=== PATIENT | male | born 1955 | race Caucasian/White ===

== ENCOUNTER 2020-02-12 02:45 | Inpatient (IN) | payer OTHER ==
[~2020-02-12] VITALS: Ht 193 cm; Wt 122.5 kg
--- NOTE | 2020-02-12 02:59 | NUR ---
ANGELIQUE FROM FOR C/O R SHOULDER AND KNEE PAIN S/P SLIP AND FALL. + HEAD INJURY AND NOSE BLEED. - KO, UNABLE TO RAISE HIS R ARM BUT ABLE TO BEND THE R KNEE. PT WAS PLACED ON A MONITOR .VSS. WILL CONT TO MONITOR.
[2020-02-12] MEDS ORDERED: HYDROCODONE/APAP 5/325MG 1 EACH TABLET PO ONE (03:00)
--- NOTE | 2020-02-12 03:03 | NUR ---
PT REFUSED PAIN MEDICATION AT THIS TIME. HE WILL LET THE NURSE KNOW WHEN HE NEEDS THAT. WILL CONT TO MONITOR AND FOLLOW UP.
--- NOTE | 2020-02-12 03:06 | NUR ---
BROUGHT TO CT
[2020-02-12] MEDS ORDERED: HYDROCODONE/APAP 5/325MG 1 EACH TABLET ONE (04:03)
--- NOTE | 2020-02-12 05:48 | NUR ---
DR. HERNANDEZ SPEAKING WITH HOSPITALIST
--- NOTE | 2020-02-12 05:50 | NUR ---
EMT AT BEDSIDE FOR EKG
[2020-02-12] MEDS ORDERED: MAGNESIUM HYDROXIDE 30 ML UDC PO PRN (06:00)
[2020-02-12] MEDS ORDERED: Z GUARD REMEDY 2 OZ OINT TP PRN (06:00)
[2020-02-12] MEDS ORDERED: ONDANSETRON HCL/PF 4 MG/2 ML VIAL IVP PRN (06:00)
[2020-02-12] MEDS ORDERED: MAG HYDROX/AL HYDROX/SIMETH 30 ML UDC PO PRN (06:00)
[2020-02-12] MEDS ORDERED: ACETAMINOPHEN 325 MG TABLET PO PRN (06:00)
--- NOTE | 2020-02-12 06:10 | NUR ---
CLIENT SUPPORT REPRESENTATIVE AT BEDSIDE FOR LABS
--- NOTE | 2020-02-12 06:10 | NUR ---
XRAY AT BEDSIDE
[2020-02-12 06:12] LABS: BASOPHILS # (AUTO) 0.1 /CMM (0.0-0.2); BASOPHILS % (AUTO) 0.7 % (0.0-2.0); EOSINOPHILS % (AUTO) 5.1 % (0.0-6.0); HEMATOCRIT 44 % (39-51); HEMOGLOBIN 14.8 g/dL (13.5-17.5); LYMPHOCYTES # (AUTO) 1.6 /CMM (0.8-4.8); LYMPHOCYTES % (AUTO) 16.6 % (20.0-44.0); MEAN CORPUSCULAR HGB CONC 34 g/dl (31.0-36.0); MEAN CORPUSCULAR VOLUME 104 fL (80-96); MONOCYTES # (AUTO) 0.6 /CMM (0.1-1.30); MONOCYTES % (AUTO) 6.4 % (2.0-12.0); NEUTROPHILS # (AUTO) 6.8 /CMM (1.8-8.9); NEUTROPHILS % (AUTO) 71.2 % (43.0-81.0); PLATELET COUNT (AUTO) 155 /CMM (150-450); WHITE BLOOD COUNT (AUTO) 9.5 K/uL (4.3-11.0)
[2020-02-12] MEDS ORDERED: CARV25TA PO (06:14)
[2020-02-12] MEDS ORDERED: LISI40TA4 PO (06:14)
[2020-02-12] MEDS ORDERED: OMEP20TA20 PO (06:14)
--- NOTE | 2020-02-12 06:15 | NUR ---
SHOULD SLING AND R KNEE IMMOBILIZER PLACED
--- NOTE | 2020-02-12 06:17 | NUR ---
REPORT GIVEN TO LALY WISDOM FOR GIANNI
[2020-02-12 06:23] LABS: CALCIUM, SERUM 8.9 mg/dL (8.5-10.1); CARBON DIOXIDE 22 mmol/L (21-32); CHLORIDE 103 mmol/L (98-107); CREATININE 1.2 mg/dL (0.6-1.3); GLUCOSE 109 mg/dL (74-106); POTASSIUM 4.6 mmol/L (3.5-5.1); SODIUM SERUM 135 mmol/L (136-145); UREA NITROGEN, BLOOD 12 mg/dL (7-18)
--- NOTE | 2020-02-12 06:24 | NUR ---
BONDED STRUCTURES REPAIRER AT BEDSIDE FOR BLOOD DRAW.
[2020-02-12 07:00] VITALS: BP 166/95
[2020-02-12] MEDS ORDERED: ALLO300T2 PO (07:58)
[2020-02-12] MEDS ORDERED: CARV40CP7 PO (07:58)
[2020-02-12 08:00] VITALS: BP 155/83
--- NOTE | 2020-02-12 08:00 | NUR ---
NURSING HOME ADMINISTRATOR AM NOTES RECEIVED PT ALERT AND ORIENTED X4. VERBALLY RESPONSIVE.NO SOB ON ROOM AIR.WITH RT KNEE IMMOBILIZER DUE TO FX AND WITH RT SHOULDER FX WELL.WITH RT ARM SLING IN PLACE. IV H/L INTACT.SKIN INTACT.ON NPO. CALL LIGHT PLACED WITHIN REACH.
[2020-02-12 09:00] VITALS: BP_SYST 155; BP_SYST 156; BP_DIAS 83; BP_DIAS 98
[2020-02-12] MEDS: LISINOPRIL (20MG) 20 MG TABLET PO SCH ×3 (09:00→11:24)
[2020-02-12] MEDS: CARVEDILOL 12.5 MG TABLET PO SCH ×4 (09:00→21:21)
[2020-02-12] MEDS: PANTOPRAZOLE 40 MG VIAL IV SCH (09:12)
[2020-02-12 09:22] LABS: THYROID STIMULATING HORMONE 2.132 uIU/mL (0.358-3.74)
[2020-02-12 09:32] LABS: MAGNESIUM 1.9 mg/dL (1.8-2.4); PHOSPHORUS 2.5 mg/dL (2.5-4.9)
[2020-02-12] MEDS: IV NS 0.9% 1,000 ML IV PRN (11:33)
[2020-02-12] MEDS: MORPHINE SULFATE INJ 2 MG/ML DISP.SYRIN IV PRN ×2 (13:40→21:22)
[2020-02-12 16:00] VITALS: BP 131/79
--- NOTE | 2020-02-12 17:52 | NUR ---
SEEN BY LIVE EBARD WITH NO PLANS FOR SX FOR NOW
[2020-02-12 20:00] VITALS: BP 134/67
[2020-02-12] MEDS: ALLOPURINOL 100 MG TABLET PO SCH (21:21)
[2020-02-13 00:26] VITALS: BP 151/76
[2020-02-13] MEDS: IV NS 0.9% 1,000 ML IV PRN ×2 (01:30→19:34)
[2020-02-13] MEDS: MORPHINE SULFATE INJ 2 MG/ML DISP.SYRIN IV PRN ×2 (01:30→06:06)
[2020-02-13 04:00] VITALS: BP 136/95
--- NOTE | 2020-02-13 06:48 | NUR ---
BATH TESTER NOTES AWAKE & RESPONSIVE. NOT IN ANY DISTRESS. NO SOB NOTED. DENIES ANY PAIN OR DISCOMFORT AT THIS TIME. MONITORED ACCORDINGLY. CALL LIGHT WITHIN REACH. BED IN LOWEST POSITION. SR UP X 3 WITH BED ALARM ON FOR SAFETY. WILL ENDORSE TO NEXT SHIFT.
[2020-02-13 07:41] LABS: BASOPHILS % (AUTO) 0.4 % (0.0-2.0); EOSINOPHILS % (AUTO) 5.5 % (0.0-6.0); HEMATOCRIT 40 % (39-51); HEMOGLOBIN 13.5 g/dL (13.5-17.5); LYMPHOCYTES # (AUTO) 1.6 /CMM (0.8-4.8); LYMPHOCYTES % (AUTO) 17.2 % (20.0-44.0); MEAN CORPUSCULAR HGB CONC 34 g/dl (31.0-36.0); MEAN CORPUSCULAR VOLUME 103 fL (80-96); MONOCYTES # (AUTO) 0.8 /CMM (0.1-1.30); MONOCYTES % (AUTO) 8.7 % (2.0-12.0); NEUTROPHILS # (AUTO) 6.2 /CMM (1.8-8.9); NEUTROPHILS % (AUTO) 68.2 % (43.0-81.0); PLATELET COUNT (AUTO) 138 /CMM (150-450); RED BLOOD CELL COUNT(AUTO) 3.82 MIL/uL (4.5-6.0); WHITE BLOOD COUNT (AUTO) 9.1 K/uL (4.3-11.0)
[2020-02-13 08:00] VITALS: BP 139/64
[2020-02-13 08:00] LABS: ALANINE AMINOTRANSFERASE 26 U/L (12-78); ALBUMIN 3.1 g/dL (3.4-5.0); ALKALINE PHOSPHATASE 51 U/L (46-116); ASPARTATE AMINOTRANSFERASE 23 U/L (15-37); BILIRUBIN,TOTAL 0.9 mg/dL (0.2-1.0); CALCIUM, SERUM 8.3 mg/dL (8.5-10.1); CARBON DIOXIDE 25 mmol/L (21-32); CHLORIDE 102 mmol/L (98-107); CREATININE 1.1 mg/dL (0.6-1.3); GLUCOSE 111 mg/dL (74-106); MAGNESIUM 1.7 mg/dL (1.8-2.4); POTASSIUM 3.9 mmol/L (3.5-5.1); SODIUM SERUM 135 mmol/L (136-145); UREA NITROGEN, BLOOD 11 mg/dL (7-18)
--- NOTE | 2020-02-13 08:00 | NUR ---
CRACKLING PRESS OPERATOR OPENING NOTES Received Patient awake and resting in bed. A/O x 4. VS stable with no acute distress. Breathing even and unlabored on room air with no respiratory distress. Patient stated tolerable pain level of 4/10 on Right Knee and Right Shoulder. Will continue to monitor and intervene as ordered. Telemonitor in place and patent reading Afib with PCVs. Patient in stable condition. 20g PIV on Left Hand, clean, intact, patent and flushing well with NS infusing at 75ml/hr. Safety precautions in place. Bed locked and set to lowest position with side rails x 2 up. All needs rendered at this time. Call light within reach. Will continue to monitor.
[2020-02-13] MEDS: CARVEDILOL 12.5 MG TABLET PO SCH ×2 (08:45→21:24)
[2020-02-13] MEDS: PANTOPRAZOLE 40 MG VIAL IV SCH (08:45)
[2020-02-13] MEDS: LISINOPRIL (20MG) 20 MG TABLET PO SCH (08:46)
[2020-02-13] MEDS ORDERED: CARVEDILOL PHOSPHATE 40 MG PO SCH (09:00)
[2020-02-13] MEDS ORDERED: ALLOPURINOL 100 MG TABLET PO SCH (09:00)
[2020-02-13] MEDS: Magnesium 1GM/D5W 100ML PREMIX 100 ML IV SCH ×2 (10:40→11:49)
[2020-02-13] MEDS ORDERED: LISINOPRIL (20MG) 20 MG TABLET PO SCH (11:00)
[2020-02-13 12:12] LABS: CHOLESTEROL 161 mg/dL (<200); HDL CHOLESTEROL 45 mg/dL (40-60); LDL 117 mg/dL (0-99); THYROID STIMULATING HORMONE 2.421 uIU/mL (0.358-3.74); TRIGLYCERIDES 74 mg/dL (30-150)
[2020-02-13] MEDS: HYDROCODONE/APAP 10/325MG 1 EA TABLET PO PRN ×2 (12:15→21:25)
[2020-02-13 16:00] VITALS: BP 134/71
--- NOTE | 2020-02-13 18:18 | NUR ---
MS RN CLOSING NOTES Patient awake and resting in bed. A/O x 4. VS stable with no acute distress. Breathing even and unlabored on room air with no respiratory distress. Patient stated tolerable pain level of 3/10 on Right Knee and Right Shoulder. Will endorse to oncoming shift. 20g PIV on Left Hand, clean, intact, patent and flushing well with NS infusing at 75ml/hr. Safety precautions in place. Bed locked and set to lowest position with side rails x 2 up. All needs rendered at this time. Call light within reach. Will endorse plan of care to oncoming shift.
--- NOTE | 2020-02-13 19:40 | NUR ---
MS RN RECEIVE PT IN BED A/O X 4 NWB RUE, NO S/S OF DISTRESS, SAFETY MEASURES AT ALL TIMES. WILL CONT TO MONITOR
[2020-02-13 20:00] VITALS: BP 135/71
[2020-02-13 20:18] VITALS: BP 135/71
[2020-02-13] MEDS: ALLOPURINOL 100 MG TABLET PO SCH (21:25)
[2020-02-14] MEDS: HYDROCODONE/APAP 10/325MG 1 EA TABLET PO PRN ×2 (04:54→20:39)
--- NOTE | 2020-02-14 05:45 | NUR ---
MS RN SLEPT WELL, AFEBRILE. NO S/S OF DISTRESS. MONITORED FOR PAIN. MEDICATED WITH PRN PAIN MEDS WITH RELIEF. ALL NEEDS ATTENDED AND ANTICIPATED, KEPT CLEAN, DRY AND COMFORTABLE. AM CARE RENDERED, RUE SLING AND R KNEE IMMOBILIZER INTACT AT ALL TIMES, NWB RUE MAINTAINED, SAFETY MEASURES AT ALL TIMES. WILL ENDORSE TO NEXT SHIFT.
--- NOTE | 2020-02-14 07:33 | NUR ---
MS RN NOTES RECEIVED PATIENT IN BED RESTING COMFORTABLY IN MODERATE HIGH BACK REST. A/O X4. ABLE TO MAKE NEEDS KNOWN. NO S/S OF DISTRESS NOTED AT THIS TIME. NOTED WITH RUE SLING AND R KNEE IMMOBILIZER, INTACT, IV FLUIDS ON LEFT HAND #20 WITH NS RUNNING @75ML/HR, PATENT AND INTACT, SAFETY MEASURES IN PLACE, BED IN LOWEST LOCKED POSITION WITH SIDE RAILX UP X2. CALL LIGHT WITHIN REACH. WILL CONTINUE TO MONITOR.
[2020-02-14 08:00] VITALS: BP 139/73
[2020-02-14] MEDS: PANTOPRAZOLE 40 MG VIAL IV SCH (08:35)
[2020-02-14] MEDS: LISINOPRIL (20MG) 20 MG TABLET PO SCH (08:35)
[2020-02-14] MEDS: CARVEDILOL 12.5 MG TABLET PO SCH ×2 (08:35→21:15)
[2020-02-14] MEDS: IV NS 0.9% 1,000 ML IV PRN ×2 (08:43→21:37)
--- NOTE | 2020-02-14 18:38 | NUR ---
MS RN NOTES PATIENT IN BED RESTING COMFORTABLY IN MODERATE HIGH BACK REST. A/O X4. ABLE TO MAKE NEEDS KNOWN. NO S/S OF DISTRESS NOTED THROUGHOUT THE SHIFT. NOTED WITH RUE SLING AND R KNEE IMMOBILIZER, INTACT, IV FLUIDS ON LEFT HAND #20 WITH NS RUNNING @75ML/HR, PATENT AND INTACT, SAFETY MEASURES IN PLACE, BED IN LOWEST LOCKED POSITION WITH SIDE RAILX UP X2. CALL LIGHT WITHIN REACH. WILL ENDORSE TO BUSINESS BANKING MANAGER NURSE FOR GIANNI.
--- NOTE | 2020-02-14 19:17 | NUR ---
MS RN RECEIVE PT IN BED AWAKE A/O X 3 STABLE, NO S/S OF DISTRESS, SAFETY MEASURES AT ALL TIMES. WILL CONT TO MONITOR
[2020-02-14 20:00] VITALS: BP 139/81
[2020-02-14 20:13] VITALS: BP 139/81
[2020-02-14] MEDS: ALLOPURINOL 100 MG TABLET PO SCH (21:15)
[2020-02-15] MEDS: HYDROCODONE/APAP 10/325MG 1 EA TABLET PO PRN ×3 (02:10→23:31)
--- NOTE | 2020-02-15 05:45 | NUR ---
MS RN PT SLEPT WELL, MONITORED ACCORDINGLY, MAINTAINS RIGHT SLING, R KNEE IMMOBILIZER AT ALL TIMES. MONITORED FOR PAIN, NEEDS ATTENDED AND ANTICIPATED, KEPT CLEAN, DRY AND COMFORTABLE. SAFETY MEASURES AT ALL TIMES. WILL ENDORSE TO NEXT SHIFT.
--- NOTE | 2020-02-15 07:06 | NUR ---
MS RN NOTES RECEIVED PATIENT IN BED RESTING COMFORTABLY IN MODERATE HIGH BACK REST. A/O X4. ABLE TO MAKE NEEDS KNOWN. NO S/S OF DISTRESS NOTED AT THIS TIME. NOTED WITH RUE SLING AND R KNEE IMMOBILIZER, INTACT, IV FLUIDS ON RIGHT HAND #22 WITH NS RUNNING @75ML/HR, PATENT AND INTACT, SAFETY MEASURES IN PLACE, BED IN LOWEST LOCKED POSITION WITH SIDE RAILS UP X2. CALL LIGHT WITHIN REACH. WILL CONTINUE TO MONITOR.
[2020-02-15 08:00] VITALS: BP 122/90
[2020-02-15] MEDS: CARVEDILOL 12.5 MG TABLET PO SCH ×2 (08:19→21:07)
[2020-02-15] MEDS: LISINOPRIL (20MG) 20 MG TABLET PO SCH (08:19)
[2020-02-15] MEDS: PANTOPRAZOLE 40 MG VIAL IV SCH (08:19)
[2020-02-15 16:00] VITALS: BP 110/59
[2020-02-15] MEDS: IV NS 0.9% 1,000 ML IV PRN (16:42)
--- NOTE | 2020-02-15 18:49 | NUR ---
MS RN NOTES PATIENT IN BED RESTING COMFORTABLY IN MODERATE HIGH BACK REST. A/O X4. ABLE TO MAKE NEEDS KNOWN. NO S/S OF DISTRESS NOTED THROUGHOUT THE SHIFT. NOTED WITH RUE SLING AND R KNEE IMMOBILIZER, INTACT, IV FLUIDS ON LEFT HAND #20 WITH NS RUNNING @75ML/HR, PATENT AND INTACT, SAFETY MEASURES IN PLACE, BED IN LOWEST LOCKED POSITION WITH SIDE RAILX UP X2. CALL LIGHT WITHIN REACH. WILL ENDORSE TO CORE BLOWER OPERATOR NURSE FOR GIANNI.
--- NOTE | 2020-02-15 19:20 | NUR ---
MS RN OPENING NOTES RECEIVED PATIENT FROM MORNING SHIFT, ALERT AND ORIENTED X 3. VERBALLY RESPONSIVE AND ABLE TO FOLLOW DIRECTIONS. BREATHING REGULAR AND UNLABORED ON ROOM AIR. RIGHT HAND G22 IV LINE INTACT AND PATENT, INFUSING WELL WITH NO BLEEDING OR S/S OF INFILTRATION NOTED. ATTACHED TO RIGHT ARM SLING AND RIGHT KNEE IMMOBILIZER. DENIES SUICIDAL IDEATION OR PAIN/DISCOMFORT AT THIS TIME. BED LOW AND LOCKED ON SEMI FOWLERS POSITION. CALL LIGHT IN REACH. WILL CONTINUE TO MONITOR.
[2020-02-15 20:00] VITALS: BP 135/81
[2020-02-15] MEDS: ALLOPURINOL 100 MG TABLET PO SCH (21:07)
[2020-02-15] MEDS: MORPHINE SULFATE INJ 2 MG/ML DISP.SYRIN IV PRN (21:07)
--- NOTE | 2020-02-15 21:10 | NUR ---
MS RN NOTES COMPLAINED OF 9/10 RIGHT KNEE AND SHOULDER PAIN, MORPHINE 1MG GIVEN VIA IV PUSH. NON-PHARMACOLOGICAL INTERVENTIONS PROVIDED. VITAL SIGNS WNL. WILL CONTINUE TO MONITOR.
[2020-02-15] MEDS ORDERED: MISCELLANEOUS MED 1 EA EA XX ONE (22:30)
--- NOTE | 2020-02-15 23:40 | NUR ---
MS RN NOTES COMPLAINED OF 7/10 RIGHT KNEE AND SHOULDER PAIN, NORCO 10/325 GIVEN BY MOUTH. NON-PHARMACOLOGICAL INTERVENTIONS PROVIDED. VITAL SIGNS WNL. WILL CONTINUE TO MONITOR.
--- NOTE | 2020-02-16 06:20 | NUR ---
MS RN CLOSING NOTES PATIENT IN BED, ALERT AND ORIENTED X 3. AFEBRILE WITH NO S/S OF DISTRESS OBSERVED. RIGHT HAND G22 IV LINE PATENT AND INFUSING WELL. RIGHT ARM SLING AND RIGHT KNEE IMMOBILIZER MAINTAINED. NO COMPLAINTS OF PAIN/DISCOMFORT REPORTED AT THIS TIME. BED LOW AND LOCKED ON SEMI FOWLERS POSITION. CALL LIGHT IN REACH. WILL ENDORSE TO MORNING SHIFT FOR GIANNI.
--- NOTE | 2020-02-16 07:15 | NUR ---
MS/RN OPENING NOTES RECEIVED PATIENT IN BED, ALERT AND ORIENTED X 3. AFEBRILE WITH NO S/S OF DISTRESS OBSERVED. RIGHT HAND G22 IV LINE PATENT AND INFUSING WELL. RIGHT ARM SLING AND RIGHT KNEE IMMOBILIZER MAINTAINED. NO COMPLAINTS OF PAIN/DISCOMFORT AT THIS TIME. BED LOW AND LOCKED ON SEMI FOWLERS POSITION. CALL LIGHT WITHIN REACH. WILL CONTINUE TO MONITOR.
[2020-02-16 07:30] VITALS: BP 124/69
[2020-02-16] MEDS: LISINOPRIL (20MG) 20 MG TABLET PO SCH (08:22)
[2020-02-16] MEDS: CARVEDILOL 12.5 MG TABLET PO SCH (08:23)
[2020-02-16] MEDS: PANTOPRAZOLE 40 MG VIAL IV SCH (08:23)
--- NOTE | 2020-02-16 10:36 | NUR ---
MS/RN NOTES PATIENT COMPLAINED OF PAIN RATED 8/10 MORPHINE 1MG IV WAS GIVEN. WILL CONTINUE TO MONITOR.
[2020-02-16] MEDS: MORPHINE SULFATE INJ 2 MG/ML DISP.SYRIN IV PRN ×2 (10:59→16:57)
[2020-02-16] MEDS: IV NS 0.9% 1,000 ML IV PRN (12:57)
[2020-02-16 17:00] VITALS: BP 131/74
--- NOTE | 2020-02-16 19:14 | NUR ---
MS/RN CLOSING NOTES PATIENT IN BED, ALERT AND ORIENTED X 4. AFEBRILE WITH NO S/S OF DISTRESS OBSERVED. RIGHT HAND G22 IV LINE PATENT AND INFUSING WELL. RIGHT ARM SLING AND RIGHT KNEE IMMOBILIZER MAINTAINED. NO COMPLAINTS OF PAIN/DISCOMFORT AT THIS TIME. SEEN AND EXAMINE BY MD WITH ORDERS MADE AND CARRIED OUT. ALL DUE MEDICATION WAS GIVEN. BED LOW AND LOCKED ON SEMI FOWLERS POSITION. CALL LIGHT WITHIN REACH. WILL ENDORSED TO SLIP BRIDGE OPERATOR FOR GIANNI.
--- NOTE | 2020-02-16 20:10 | NUR ---
MS BUSINESS RISK ANALYST NOTES PICKED UP BY AMBULANCE ACCOMPANIED BY 2EMT'S. REMAINED ALERT AND ORIENTED X 3. AFEBRILE WITH NO S/S OF DISTRESS OBSERVED. NO COMPLAINTS OF PAIN/DISCOMFORT REPORTED. VITAL SIGNS AND BELONGINGS CHECKED. IV LINE AND ID BAND REMOVED. DISCHARGE PACKET GIVEN TO EMT. REPORT GIVEN TO PUJA WISDOM [facility]. BP 121/78 HR 75 RR 18 Temp 98.4 SPO2 98%
== END 2020-02-16 20:10 | DRG 563 ==
LOC: ER 02:48 → MEDSG2 06:27 → TELE2 07:26 → MEDSG2 02-14 00:38
PROVIDERS: ADMIT Internal Medicine; ATTEND Nurse Practitioner Acute Care
DX: S42.251A Displaced fracture of greater tuberosity of right humerus, initial encounter for closed fracture (principal); S82.001A Unspecified fracture of right patella, initial encounter for closed fracture; Y92.89 Other specified places as the place of occurrence of the external cause; I10 Essential (primary) hypertension; E78.5 Hyperlipidemia, unspecified; M10.9 Gout, unspecified; I73.9 Peripheral vascular disease, unspecified; W01.0XXA Fall on same level from slipping, tripping and stumbling without subsequent striking against object, initial encounter; Z79.899 Other long term (current) drug therapy; Z68.32 Body mass index [BMI] 32.0-32.9, adult; E66.9 Obesity, unspecified; M17.10 Unilateral primary osteoarthritis, unspecified knee; S09.90XA Unspecified injury of head, initial encounter; I49.9 Cardiac arrhythmia, unspecified
CPT/HCPCS: 36415; 70450-TC; 71045-TC; 73030-TC; 73564-TC; 80048-TC; 80053-TC; 80061-TC; 82962-TC; 83735-TC; 84100-TC; 84439-TC; 84443-TC; 84484-TC; 85025-TC; 85730-TC; 87081-TC; 93307-TC; 93880-TC; 97116-TC; 97530-TC; C9113; G0378; J2270; J3475; J7030; U0003-CS